=== PATIENT | male | born 1945 | race Caucasian/White ===

== ENCOUNTER 2021-10-27 16:44 | Emergency (ER) | payer MEDICARE, OTHER, SELFPAY ==
[2021-10-27] VITALS (55 sets, daily range): BP systolic 145; BP diastolic 64; PULSE 65–71; RESP 11–25; TEMP 36.7–36.8; O2SAT 95–96
--- NOTE | 2021-10-27 16:45 | RT.EKG_ITS ---
APPROVED REPORT Exam: Resting ECG Reason for Exam: chest pain Patient Location: E HR:68 bpm ECG Measurements Heart Rate 68 AXIS LA 181 P 44 QRSd 144 QRS -6 QT 434 T 94 QTc 464 Conclusion Sinus rhythm...normal P axis, V-rate 60- 99 Left bundle branch block
--- NOTE | 2021-10-27 17:00 | DI.CT_ITS ---
Exam(s) CT HEAD CERVICAL SPINE WO EXAM: CT HEAD CERVICAL SPINE WO CLINICAL HISTORY: L neck and arm pain. TECHNIQUE: Imaging Protocol: Axial computed tomography images with coronal and sagittal reformatted images were created and reviewed COMPARISON: No exams were available for comparison FINDINGS: BRAIN: There are no skull fractures nor fluid in the visualized paranasal sinuses. There is no evidence of intracranial hemorrhage, mass effect, or shift of midline structures. There are no extra-axial fluid collections. The ventricles are not enlarged or shifted and there is no blo od within the ventricular system nor within the basal cisterns. Some mild periventricular hypodensity consistent with chronic small vessel disease noted. No territo rial infarct evident. CERVICAL SPINE: There is no evidence of fracture nor listhesis. No significant prevertebral soft tissue swelling. Chronic multilevel advanced disc space narrowing noted. Also multi level facet arthropathy-mild. There is no significant facet joint malalignment. No significant osseous lesions evident. IMPRESSION: No acute intracranial findings on this noninfused CT scan of the brain. No evidence of cervical spine fracture, malalignment, nor acute compromise of the cervical spinal can al. Multilevel chronic degenerative disc disease. RADIATION DOSE DELIVERED: 1,546.58mGy.cm Total DLP DATA REPOSITORY: All CT scans at this facility are submitted to the National Radiology Data Registry (NRDR) Dose Index Registry (DIR) with the [employer] (A[employer]). RADIATION OPTIMIZATION: All CT scans at this facility use at least one of these dose optimization te chniques: automated exposure control; mA and/or kV adjustment per patient size (includes targeted exa ms where dose is matched to clinical indication); or iterative reconstruction.
--- NOTE | 2021-10-27 17:00 | DI.RAD_ITS ---
Exam(s) XR CHEST 2V PA LATERAL EXAM: XR CHEST 2V PA LATERAL CLINICAL HISTORY: Neck and left arm. TECHNIQUE: 2D digital imaging was performed. COMPARISON: CR CHEST 2 VIEWS PA,LAT from 02/25/2011 FINDINGS: 2 views: Heart size is normal. The mediastinum is not widened. Lungs are clear. No infiltrates nor pleural effusions. IMPRESSION: No acute pulmonary findings. DATA REPOSITORY: RADIATION DOSE DELIVERED:
[2021-10-27 17:26] LABS: Abs Immature Grans 0.01 10^3/uL (0.0-0.06); Absolute Basophil Count 0.05 10^3/uL (0.0-0.2); Absolute Eosinophil Count 0.24 10^3/uL (0.0-0.7); Absolute Lymphocyte Count 0.94 10^3/uL (1.2-3.4); Absolute Monocyte Count 0.59 10^3/uL (0.1-0.8); Absolute Neutrophil Count 2.64 10^3/uL (1.2-6.7); Basophils % 1.1; Eosinophils % 5.4; HCT 38.9 % (40.0-50.0); HGB 13.5 g/dL (13.5-17.5); Immature Grans % 0.2; MCH 33.8 pg (27.0-33.0); MCHC 34.7 % (32.0-36.0); MCV 97 fL (80-95); Monocytes % 13.2; Neutrophils % 59.1; Platelet Count 156 10^3/uL (130-400); RDW 12.5 % (11.8-14.1); RDW-SD 44.8 fL; WBC 4.47 10^3/uL (4.4-10.8)
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
[2021-10-27 17:49] LABS: ALT 30 U/L (16-63); AST 21 U/L (15-37); Albumin 3.9 g/dL (3.4-5.0); Alkaline Phosphatase 83 U/L (46-116); Anion Gap 6.4 mmol/L (3-11); BUN 15 mg/dL (7-18); Bilirubin, Total 0.5 mg/dL (0.2-1.0); CO2 30.6 mmol/L (21.0-32.0); CREATININE 0.9 mg/dL (0.70-1.30); Calcium 8.9 mg/dL (8.5-10.1); Chloride 104 mmol/L (98-107); Estimated GFR 89.07 (mL/min/1.73m2); Glucose 96 mg/dL (74-106); Magnesium 1.9 mg/dL (1.8-2.4); Sodium 141 mmol/L (136-145); Total Protein 6.8 g/dL (6.4-8.2); Troponin I < 50 ng/L (<or=60)
--- NOTE | 2021-10-27 18:55 | DI.VRAD_ITS ---
PROCEDURE INFORMATION: Exam: XR Chest Exam date and time: 10/27/2021 6:29 PM Age: 76 years old Clinical indication: Pain TECHNIQUE: Imaging protocol: Radiologic exam of the chest. Views: 2 views. COMPARISON: CT HEAD CERVICAL SPINE WO 10/27/2021 6:20 PM FINDINGS: Lungs: The lungs are hyperinflated, consistent with underlying small airways disease. Mild atelectasis present within the left lower lobe of the lung. An early infiltrate cannot be totally excluded. Pleural spaces: There is no evidence of pneumothorax. There are no pleural effusions present. Heart/Mediastinum: The cardiac structures are normal. Vasculature: The aorta demonstrates moderate atherosclerotic calcification. There is tortuosity of the descending thoracic aorta. Bones/joints: The skeletal structures and soft tissues show no evidence of fracture or other acute processes. Soft tissues: The soft tissues of the extrathoracic region are unremarkable. IMPRESSION: 1. The lungs are hyperinflated, consistent with underlying small airways disease. 2. Mild atelectasis present within the left lower lobe of the lung. An early infiltrate cannot be totally excluded. Dictated and Authenticated by: Frankie Weaver MD. Ordering:TEE Rodriguez MD
--- NOTE | 2021-10-27 19:02 | DI.VRAD_ITS ---
PROCEDURE INFORMATION: Exam: CT Head Without Contrast Exam date and time: 10/27/2021 6:20 PM Age: 76 years old Clinical indication: Other: Left neck and arm pain; Neck pain TECHNIQUE: Imaging protocol: Computed tomography of the head without contrast. Radiation optimization: All CT scans at this facility use at least one of these dose optimization techniques: automated exposure control; mA and/or kV adjustment per patient size (includes targeted exams where dose is matched to clinical indication); or iterative reconstruction. COMPARISON: No relevant prior studies available. FINDINGS: Brain: No acute intracranial hemorrhage, mass-effect, midline shift, or extra-axial collection is seen. There is mild patchy white matter hypoattenuation, nonspecific but commonly seen as a chronic sequela of small vessel ischemic disease. The casanova white matter differentiation appears preserved. Cerebral ventricles: The ventricular system and basilar cisterns appear appropriate in size and configuration. Paranasal sinuses: The visualized paranasal sinuses appear well-aerated. Mastoid air cells: The mastoid air cells appear well-aerated. Bones/joints: The bony calvarium appears intact. No depressed skull fracture is seen. Soft tissues: No significant scalp lesion is seen. Vasculature: There is atherosclerotic calcification within the intracranial portion of the internal carotid arteries bilaterally. IMPRESSION: No acute intracranial abnormality seen. PROCEDURE INFORMATION: Exam: CT Cervical Spine Without Contrast Exam date and time: 10/27/2021 6:20 PM Age: 76 years old Clinical indication: Other: Left neck and arm pain; Neck pain TECHNIQUE: Imaging protocol: Computed tomography of the cervical spine without contrast. Radiation optimization: All CT scans at this facility use at least one of these dose optimization techniques: automated exposure control; mA and/or kV adjustment per patient size (includes targeted exams where dose is matched to clinical indication); or iterative reconstruction. COMPARISON: No relevant prior studies available. FINDINGS: Bones/joints: No acute cervical fracture or malalignment is seen. C2-C3: Mild loss of disc height. Small broad-based posterior disc bulge. No significant cervical stenosis or foraminal narrowing. Moderate left-sided facet arthrosis. C3-C4: Loss of disc height with anterior osteophyte formation, posterior osteophytic ridging, and bilateral uncovertebral hypertrophy. Mild central canal narrowing. Moderate right and moderate-severe left-sided foraminal narrowing. C4-C5: Loss of disc height with anterior osteophyte formation. Uncovertebral hypertrophy on the left. Small broad-based posterior disc bulge abutting the thecal sac but no significant central canal narrowing. Moderate bilateral foraminal narrowing. C5-C6: Complete loss of disc height with endplate irregularity, anterior osteophyte formation, posterior osteophytic ridging, and bilateral uncovertebral hypertrophy. Moderate-sized broad-based posterior disc bulge abutting and mildly deforming the thecal sac. Mild-moderate bilateral foraminal narrowing. C6-C7: Loss of disc height with anterior osteophyte formation, posterior osteophytic ridging, and bilateral uncovertebral hypertrophy. No significant cervical stenosis. Mild left and mild-moderate right-sided foraminal narrowing. C7-T1: Loss of disc height with anterior osteophyte formation, posterior osteophytic ridging, and bilateral uncovertebral hypertrophy. No significant cervical stenosis. Mild bilateral foraminal narrowing. Thyroid: Normal sized thyroid gland. Lungs: Small region of spiculated density at the left lung apex, nonspecific. Scarring? Comparison with prior imaging recommended. Vasculature: There is atherosclerotic calcification at the carotid bifurcations bilaterally. Soft tissues: Within the limits of the exam, no gross soft tissue fluid collection is seen in the neck. IMPRESSION: 1. No acute cervical fracture or malalignment. 2. Cervical degenerative changes, as detailed level by level above. Dictated and Authenticated by: Eliazar Silva MD. Ordering:TEE Rodriguez MD
[2021-10-27] MEDS: predniSONE 20 MG TAB 40 MG PO (19:57)
== END 2021-10-27 20:00 | disposition home or self-care (01) ==
PROVIDERS: Emergency Provider Emergency Medicine; PCP Neuromusculoskeletal Medicine & OMM
DX: M50.122 Cervical disc disorder at C5-C6 level with radiculopathy (principal); R07.9 Chest pain, unspecified
CPT/HCPCS: 36415; 80053; 93005; 99285; 70450; 71046; 72125; 83735; 84484; 85025; 93010; 99284; J7512

== ENCOUNTER → 2022-05-09 08:48 | Outpatient (BNVA) | payer MEDICARE, OTHER, SELFPAY | PROVIDERS: PCP Neuromusculoskeletal Medicine & OMM; Referring Provider Neuromusculoskeletal Medicine & OMM; Visit Provider Nurse Practitioner Gerontology | DX: N40.1 Benign prostatic hyperplasia with lower urinary tract symptoms (principal); R39.89 Other symptoms and signs involving the genitourinary system; R97.20 Elevated prostate specific antigen [PSA]; N32.0 Bladder-neck obstruction | CPT/HCPCS: 51798; 81003; 99215 ==

== ENCOUNTER → 2022-07-12 12:56 | Outpatient (BNVA) | payer MEDICARE, OTHER, SELFPAY | PROVIDERS: PCP Neuromusculoskeletal Medicine & OMM; Referring Provider Neuromusculoskeletal Medicine & OMM; Visit Provider Urology | DX: R97.20 Elevated prostate specific antigen [PSA] (principal) | CPT/HCPCS: 55700; 76872 ==

== ENCOUNTER 2022-07-12 13:36 | Outpatient (REF) | payer MEDICARE, OTHER, SELFPAY ==
--- NOTE | 2022-07-12 13:20 | PROST_PTH ---
PATIENT: Manuel Davenport LOC: N U#:[id number] AGE/SX: 76/M ROOM: RE07/12/[address]: Juan Manuel MD : 1945 BED: DIS: 07/12/2022 SPEC #: [id number] RECD: 07/16/22 12:08 STATUS: FLAQUITA RE #: [id number] KRISTIN: 07/12/22 13:[address]: Juan Manuel DEPT: Surgical Specimen RECD BY: Kalie Lilly ENTERED: 07/16/22 12:10 SP TYPE: PROST OTHR DR: Pedro Azar Tissues: 1 - PROSTATE NEEDLE BIOPSY 2 - PROSTATE NEEDLE BIOPSY 3 - PROSTATE NEEDLE BIOPSY 4 - PROSTATE NEEDLE BIOPSY 5 - PROSTATE NEEDLE BIOPSY 6 - PROSTATE NEEDLE BIOPSY 7 - PROSTATE NEEDLE BIOPSY 8 - PROSTATE NEEDLE BIOPSY 9 - PROSTATE NEEDLE BIOPSY 10 - PROSTATE NEEDLE BIOPSY 11 - PROSTATE NEEDLE BIOPSY 12 - PROSTATE NEEDLE BIOPSY Procedures: GROSS AND MICRO LEVEL 4 Comments: [id number]
== END 2022-07-12 13:37 | disposition home or self-care (01) ==
LOC: LBN 13:36
PROVIDERS: PCP Neuromusculoskeletal Medicine & OMM; Visit Provider Urology
DX: N42.89 Other specified disorders of prostate (principal)
CPT/HCPCS: 88305

== ENCOUNTER → 2022-07-26 14:47 | Outpatient (BNVA) | payer MEDICARE, SELFPAY | PROVIDERS: PCP Neuromusculoskeletal Medicine & OMM; Referring Provider Neuromusculoskeletal Medicine & OMM; Visit Provider Urology | DX: R97.20 Elevated prostate specific antigen [PSA] (principal); R10.2 Pelvic and perineal pain | CPT/HCPCS: 99214 ==

== ENCOUNTER → 2022-08-23 11:27 | Outpatient (BNVA) | payer MEDICARE, SELFPAY | PROVIDERS: PCP Neuromusculoskeletal Medicine & OMM; Referring Provider Neuromusculoskeletal Medicine & OMM; Visit Provider Urology | DX: R10.2 Pelvic and perineal pain (principal); R97.20 Elevated prostate specific antigen [PSA] | CPT/HCPCS: 99213 ==

== ENCOUNTER → 2022-10-18 10:28 | Outpatient (BNVA) | payer MEDICARE, SELFPAY | PROVIDERS: PCP Neuromusculoskeletal Medicine & OMM; Referring Provider Neuromusculoskeletal Medicine & OMM; Visit Provider Urology | DX: R10.2 Pelvic and perineal pain (principal); N32.0 Bladder-neck obstruction; R97.20 Elevated prostate specific antigen [PSA]; R39.15 Urgency of urination | CPT/HCPCS: 51798; 81003; 99214 ==

== ENCOUNTER 2022-11-20 09:20 | Emergency (ER) | payer MEDICARE, SELFPAY ==
[2022-11-20 09:24] VITALS: BP 174/78; PULSE 74; RESP 16; O2SAT 95
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
[2022-11-20] MEDS: Lidocaine 5% Patch 1 PATCH TP (10:33)
[2022-11-20] MEDS: traMADol 50 MG TAB PO (10:38)
== END 2022-11-20 10:42 | disposition home or self-care (01) ==
PROVIDERS: Emergency Provider Registered Nurse Emergency; PCP Neuromusculoskeletal Medicine & OMM
DX: S22.42XA Multiple fractures of ribs, left side, initial encounter for closed fracture (principal); Z79.82 Long term (current) use of aspirin; V28.49XA Other motorcycle driver injured in noncollision transport accident in traffic accident, initial encounter; Y92.488 Other paved roadways as the place of occurrence of the external cause; Z86.711 Personal history of pulmonary embolism
CPT/HCPCS: 99284; 71046; 71100

== ENCOUNTER → 2022-12-13 13:57 | Outpatient (BNVA) | payer MEDICARE, SELFPAY | PROVIDERS: PCP Neuromusculoskeletal Medicine & OMM; Referring Provider Neuromusculoskeletal Medicine & OMM; Visit Provider Urology | DX: R39.15 Urgency of urination (principal) | CPT/HCPCS: 51798; 99214 ==

== ENCOUNTER → 2023-02-04 07:59 | Outpatient (BNVA) | payer MEDICARE, SELFPAY | PROVIDERS: PCP Neuromusculoskeletal Medicine & OMM; Referring Provider Neuromusculoskeletal Medicine & OMM; Visit Provider Urology | DX: R35.0 Frequency of micturition (principal); R39.15 Urgency of urination; R97.20 Elevated prostate specific antigen [PSA] | CPT/HCPCS: 99213 ==

== ENCOUNTER 2023-02-04 09:53 | Outpatient (CLI) | payer MEDICARE, SELFPAY ==
[2023-02-04 18:21] LABS: PSA, Diagnostic 9.5 ng/mL (<=6.5)
== END 2023-02-04 09:54 | disposition home or self-care (01) ==
LOC: LBO 09:53
PROVIDERS: PCP Neuromusculoskeletal Medicine & OMM; Visit Provider Urology
DX: R97.20 Elevated prostate specific antigen [PSA] (principal)
CPT/HCPCS: 36415; 99213; 84153

== ENCOUNTER 2023-08-01 13:34 | Outpatient (CLI) | payer MEDICARE, SELFPAY ==
[2023-08-01 23:24] LABS: PSA, Diagnostic 9.3 ng/mL (<=6.5)
== END 2023-08-01 13:35 | disposition home or self-care (01) ==
LOC: LBO 13:36
PROVIDERS: PCP Neuromusculoskeletal Medicine & OMM; Visit Provider Urology
DX: R97.20 Elevated prostate specific antigen [PSA] (principal)
CPT/HCPCS: 36415; 84153

== ENCOUNTER → 2023-08-05 07:53 | Outpatient (BNVA) | payer MEDICARE, SELFPAY | PROVIDERS: PCP Neuromusculoskeletal Medicine & OMM; Referring Provider Neuromusculoskeletal Medicine & OMM; Visit Provider Urology | DX: R39.15 Urgency of urination (principal); N32.0 Bladder-neck obstruction; R97.20 Elevated prostate specific antigen [PSA] | CPT/HCPCS: 81003; 99213 ==

== ENCOUNTER → 2023-10-28 07:55 | Outpatient (BNVA) | payer MEDICARE, SELFPAY | PROVIDERS: PCP Neuromusculoskeletal Medicine & OMM; Visit Provider Urology | DX: R39.15 Urgency of urination (principal); R97.20 Elevated prostate specific antigen [PSA] | CPT/HCPCS: 99213 ==

== ENCOUNTER 2023-11-21 12:43 | Emergency (ER) | payer MEDICARE, SELFPAY ==
[2023-11-21 12:46] VITALS: BP 154/81; PULSE 83; RESP 18; TEMP 36.3; O2SAT 97
--- NOTE | 2023-11-21 13:27 | DI.RAD_ITS ---
Exam(s) XR CHEST 2V PA LATERAL EXAM: XR CHEST 2V PA LATERAL CLINICAL HISTORY: sob TECHNIQUE: 2D digital imaging was performed. Two views. COMPARISON: CR XR RIBS LT W PA LAT CHEST from 11/20/2022 FINDINGS: HEART: Normal size. Aorta: Tortuous. PULMONARY VASCULATURE: Normal. MEDIASTINUM: Unremarkable. LUNGS: Clear. PLEURAL SPACE: No pleural effusion or pneumothorax. BONE:Old left rib fractures. Degenerative changes in the spine and shoulders. Postsurgical changes of the left shoulder. SOFT TISSUES: Unremarkable. IMPRESSION: No acute abnormality. DATA REPOSITORY: RADIATION DOSE DELIVERED:
--- NOTE | 2023-11-21 14:26 | ED.GENADUL_ITS ---
Discharge Plan Disposition Patient Disposition: Home Discharge Details Clinical Impression: Referral of patient Primary Care Provider: Pedro Azar ED Provider: John Leahy Home Meds and New Rx's Prescriptions: Continued sertraline 50 mg tablet 50 mg PO DAILY omega-3 fatty acids [Fish Oil Concentrate] 1,000 MG capsule 1,000 mg PO DAILY aspirin [Aspirin Low-Strength] 81 MG tablet,chewable 81 mg PO DAILY ibuprofen [Ibuprofen Jr Strength] 100 MG tablet,chewable 200 mg PO Q4H PRN multivit with min-folic acid [Omnicap] 0.4 MG tablet 0.4 mg PO DAILY atorvastatin 40 mg tablet 40 mg PO DAILY Discharge Instructions Additional Instructions: You are seen in the emergency department for your reportedly abnormal x-ray. Your x-ray in the emergency department showed no acute abnormalities. As we discussed, if you develop sudden onset shortness of breath if you pass out or if you develop chest pain please return immediately to the emergency department. Otherwise please follow-up as we discussed next week with your primary care provider. Discharge Data Discharge Date/Time-TO BE ENTERED AT DEPARTURE: 11/21/23 14:54 HPI General Date/Time Provider Initiated Documentation: 11/21/23 13:14 . HPI Narrative: MDM This is a quite well-appearing afebrile and not tachycardic 78-year-old male with reported abnormality on x-ray seen prehospital not in any acute distress with reassuring x-ray in the emergency department for which patient will receive and empiric trial of discharge with expectant outpatient management. No pain out of proportion to suggest necrotizing soft tissue infection. No chest pain to suggest ACS. No shortness of breath nor fevers to suggest pneumonia. Not tachycardic nor hypotensive to suggest PE. No history of recent trauma to suggest increased risk for pneumothorax I did not feel that the patient required a CT scan to increase sensitivity. No wheezes to suggest reactive airway disease. No tongue swelling to suggest anaphylaxis so no indication for epinephrine. Patient does not appear volume overloaded and does not have a history of acute heart failure so my suspicion for new onset CHF is low as I do not feel that the patient requires diuretics. Patient and I discussed he should return to the emergency department if he developed shortness of breath fevers or began having production of purulent sputum. Patient understood return indications. I advised PCP follow-up next week. HPI This is a 78-year-old male arrived to the emergency department via private vehicle in the setting of a reported abnormal x-ray with the orthopedic team. He reportedly was told at his orthopedic visit that he had a partially collapsed lung and needed another x-ray. He denied any recent injuries. He was in his usual state of health earlier today. I asked him if he would have been in the emergency department had he not been contacted by his orthopedic team. He said that he would not be in the emergency department as he was feeling well today. Patient reportedly had his x-ray performed 2 days ago. He denies any recent fevers chills nausea well-appearing chest. No shortness of breath. Exam General: Well-appearing in no acute distress speaking in complete sentences. Head: Normocephalic, atraumatic. Eye: Extraocular eye movements intact. No conjunctival injection. No scleral icterus. Ear, nose, mouth, throat: Grossly normal inspection. Normal voice, handling secretions normally. Neck: Trachea midline. Cardiovascular: Well-perfused distal extremities. Respiratory: Nonlabored respiration. Gastrointestinal: Nondistended abdomen. Musculoskeletal: No edema. Moving all 4 extremities spontaneously. Skin: Normal for age and race, grossly normal temperature and turgor. No acute rash. Neurologic: Alert and appropriate, no apparent acute deficits. Psychiatric: Mood and manner are appropriate. Grooming and personal hygiene are appropriate. Related Data Home Medications ?Medication ?Instructions ?Recorded ?Confirmed aspirin 81 mg chewable tablet 81 mg PO DAILY 11/18/12 11/21/23 (Aspirin Low-Strength) ibuprofen 100 mg chewable tablet 200 mg PO Q4H PRN 11/18/12 11/21/23 (Ibuprofen Jr Strength) multivitamin with minerals-folic 0.4 mg PO DAILY 11/18/12 11/21/23 acid 0.4 mg tablet (Omnicap) omega-3 fatty acids 1,000 mg 1,000 mg PO DAILY 11/18/12 11/21/23 capsule (Fish Oil Concentrate) sertraline 50 mg tablet 50 mg PO DAILY 08/26/20 11/21/23 atorvastatin 40 mg tablet 40 mg PO DAILY 05/07/22 11/21/23 Allergies Allergy/AdvReac Type Severity Reaction Status Date / Time acetaminophen (From Vicodin) Allergy Other (See Verified 10/28/23 08:08 Comment) hydrocodone bitartrate (From Allergy Other (See Verified 10/28/23 08:08 Vicodin) Comment) General Stated Complaint: SOB JAMAR: 3 Course Vital Signs Vital signs: Vital Signs Temperature 36.3 C L 11/21/23 12:46 Pulse 83 11/21/23 12:46 Respiratory Rate 18 11/21/23 12:46 Blood Pressure 154/81 H 11/21/23 12:46 Pulse Oximetry 97 11/21/23 12:46 Temperature 36.3 C L 11/21/23 12:46 Temperature Source Oral 11/21/23 12:46 Pulse 83 11/21/23 12:46 Respiratory Rate 18 11/21/23 12:46 Blood Pressure 154/81 H 11/21/23 12:46 Blood Pressure Position Sitting 11/21/23 12:46 Pulse Oximetry 97 11/21/23 12:46 Oxygen Delivery Method Room Air 11/21/23 12:46 Oxygen Flow Rate 0 11/21/23 12:46 Medical Decision Making Quality:SDOH Health Related Social Needs: No Data to Display PFSH All Active Problems (Updated 11/21/23 @ 14:43 by John Leahy MD) Referral of patient (Acute) Urinary urgency (Acute) Pelvic pain in male (Acute) Bladder outlet obstruction (Acute) Elevated PSA (Acute) Neck pain (Acute) Mixed hyperlipidemia (Acute) Mass on back (Acute) Joint pain (Acute) BPH (benign prostatic hyperplasia) (Chronic) Hydrocele (Acute) History of total knee replacement (Acute) Hip pain (Acute) Hernia, inguinal (Acute) Eustachian tube disorder (Acute) Epidermoid cyst of skin (Acute) Elevated blood pressure reading (Acute) Cutaneous horn (Acute) Closed fracture of one rib (Acute) Chest pain (Acute) Asthenia (Acute) Arthropathy (Acute) Acute pulmonary embolism (Acute) Abdominal pain (Acute) Social History Smoking/Tobacco Use Status: Never Smoking risk assessment performed?: Yes Alcohol Intake: current Alcohol Intake frequency: 0-2 drinks per day Alcohol type: hard liquor Drug use: Never Substance use type: does not use Housing: house Do you feel safe at home: Yes Do you feel safe in your relationship?: Yes
[2023-11-21 14:36] VITALS: BP 128/73; PULSE 71; RESP 15; O2SAT 98
[2023-11-21 14:38] VITALS: RESP 18
[2023-11-21 14:41] VITALS: BP 128/73; PULSE 71; RESP 18; TEMP 36.3; O2SAT 98
== END 2023-11-21 14:54 | disposition home or self-care (01) ==
PROVIDERS: Emergency Provider Emergency Medicine; PCP Neuromusculoskeletal Medicine & OMM
DX: Z01.89 Encounter for other specified special examinations (principal)
CPT/HCPCS: 99283; 71046

== ENCOUNTER 2024-01-26 15:19 | Outpatient (CLI) | payer MEDICARE, SELFPAY ==
[2024-01-26 22:43] LABS: PSA, Diagnostic 7.8 ng/mL (<=6.5)
== END 2024-01-26 15:20 | disposition home or self-care (01) ==
LOC: LBO 15:22
PROVIDERS: PCP Neuromusculoskeletal Medicine & OMM; Visit Provider Urology
DX: R97.20 Elevated prostate specific antigen [PSA] (principal)
CPT/HCPCS: 36415; 84153

== ENCOUNTER → 2024-02-03 10:27 | Outpatient (BNVA) | payer MEDICARE, SELFPAY | PROVIDERS: PCP Neuromusculoskeletal Medicine & OMM; Visit Provider Urology | DX: R39.15 Urgency of urination (principal); R97.20 Elevated prostate specific antigen [PSA] | CPT/HCPCS: 99213 ==

== ENCOUNTER 2024-09-29 13:29 | Outpatient (CLI) | payer MEDICARE, SELFPAY ==
[2024-09-30 09:29] LABS: PSA, Diagnostic 8.8 ng/mL (<=6.5)
== END 2024-09-29 13:30 | disposition home or self-care (01) ==
LOC: LBO 13:30
PROVIDERS: PCP Neuromusculoskeletal Medicine & OMM; Visit Provider Urology
DX: R97.20 Elevated prostate specific antigen [PSA] (principal)
CPT/HCPCS: 36415; 84153

== ENCOUNTER → 2024-10-15 13:49 | Outpatient (BNVA) | payer MEDICARE, SELFPAY | PROVIDERS: PCP Neuromusculoskeletal Medicine & OMM; Visit Provider Urology | DX: R35.0 Frequency of micturition (principal); R39.15 Urgency of urination; R97.20 Elevated prostate specific antigen [PSA] | CPT/HCPCS: 99213 ==